=== PATIENT | female | born 1970 | race Caucasian/White ===

== ENCOUNTER 2018-02-16 15:40 | Emergency (ER) | payer OTHER ==
[~2018-02-16] VITALS: Ht 160 cm; Wt 95.3 kg
[2018-02-16] MEDS ORDERED: ROBAXIN-750750 MG PO (16:28)
[2018-02-16] MEDS ORDERED: ACETAMINOPHEN 325 MG TAB PO ONE (17:15)
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
[2018-02-16] MEDS ORDERED: TYLENOL WITH C1 EACH PO (19:36)
[2018-02-16 20:22] VITALS: BP 138/89
== END 2018-02-16 20:24 | disposition home or self-care (01) ==
LOC: ER 15:40
DX: M54.2 Cervicalgia (principal); S16.1XXA Strain of muscle, fascia and tendon at neck level, initial encounter; S20.01XA Contusion of right breast, initial encounter; S20.211A Contusion of right front wall of thorax, initial encounter; S80.02XA Contusion of left knee, initial encounter; V53.5XXA Driver of pick-up truck or van injured in collision with car, pick-up truck or van in traffic accident, initial encounter; Y92.488 Other paved roadways as the place of occurrence of the external cause
CPT/HCPCS: 71046; 72050; 99283